=== PATIENT | male | born 1970 | race Caucasian/White ===

== ENCOUNTER 2019-08-25 08:49 | Emergency (ER) | payer OTHER ==
[2019-08-25 09:14] VITALS: O2SAT 98
--- NOTE | 2019-08-25 09:25 | ERPHSYRPT ---
- History of Present Illness Time Seen by Provider: 08/25/19 08:55 Source: patient Exam Limitations: no limitations Physician History: fell and twisted his right knee at work. Patient says that his knee buckled up. Moderate pain in the right knee. The knee was immobilized prior to arrival at his work. No other injury or symptoms. Method of Injury: fell Occurred: just prior to arrival Quality: aching Severity of Pain-Max: moderate Severity of Pain-Current: moderate Lower Extremities Pain: knee: right Modifying Factors: Improves With: immobilization, movement Associated Symptoms: none Allergies/Adverse Reactions: No Known Drug Allergies Allergy (Verified 08/25/19 08:51) Home Medications: Losartan Potassium 1 tab PO DAILY 08/25/19 [History] Losartan Potassium 1 tab PO DAILY 08/25/19 [History] Hx Tetanus, Diphtheria Vaccination/Date Given: Yes (Current) Hx Influenza Vaccination/Date Given: Yes (06/06) Hx Pneumococcal Vaccination/Date Given: No - Review of Systems Constitutional: No Fever, No Chills Eyes: No Symptoms Ears, Nose, & Throat: No Symptoms Respiratory: No Cough, No Dyspnea Cardiac: No Chest Pain, No Edema, No Syncope Abdominal/Gastrointestinal: No Abdominal Pain, No Nausea, No Vomiting, No Diarrhea Genitourinary Symptoms: No Dysuria Musculoskeletal: Other (right knee: Painful, no tenderness, painful range of motion. No deformity.), No Back Pain, No Neck Pain Skin: No Rash Neurological: No Dizziness, No Focal Weakness, No Sensory Changes Psychological: No Symptoms Endocrine: No Symptoms All Other Systems: Reviewed and Negative - Past Medical History Pertinent Past Medical History: Yes Neurological History: No Pertinent History ENT History: No Pertinent History Cardiac History: High Cholesterol Respiratory History: Bronchitis, Other Endocrine Medical History: No Pertinent History Musculoskeletal History: Fractures GI Medical History: No Pertinent History History: No Pertinent History Psycho-Social History: No Pertinent History Male Reproductive Disorders: No Pertinent History Other Medical History: Narcolepsy. l1/l2 back fx 2011- no surgery needed - Past Surgical History Past Surgical History: Yes Neuro Surgical History: No Pertinent History Cardiac: No Pertinent History Respiratory: No Pertinent History Gastrointestinal: No Pertinent History Genitourinary: No Pertinent History Musculoskeletal: No Pertinent History Male Surgical History: Vasectomy Other Surgical History: cyst removed from scalp - Social History Smoking Status: Former smoker How long have you smoked: 11yrs Exposure to second hand smoke: No Drug Use: none Patient Lives Alone: No Significant Family History: no pertinent family hx - Nursing Vital Signs Nursing Vital Signs: Initial Vital Signs Temperature 98.0 F 08/25/19 09:02 Pulse Rate 87 08/25/19 09:02 Respiratory Rate 18 08/25/19 09:02 Blood Pressure 152/101 08/25/19 09:02 O2 Sat by Pulse Oximetry 98 08/25/19 09:02 Pain Scale Pain Intensity 3 - Physical Exam General Appearance: alert Eyes, Ears, Nose, Throat Exam: moist mucous membranes Neck Exam: non-tender, supple Cardiovascular/Respiratory Exam: chest non-tender, normal breath sounds, regular rate/rhythm, no respiratory distress Gastrointestinal/Abdominal Exam: non-tender, guarding Back Exam: normal inspection, No vertebral tenderness Hips Exam: right: non-tender, normal inspection, normal range of motion, bone tenderness Legs Exam: bilateral leg: non-tender, normal inspection, normal range of motion , no evidence of injury Knees Exam: right knee: pain, soft tissue tenderness (right knee: Painful, no tenderness, painful range of motion. No deformity.) Ankle Exam: bilateral ankle: non-tender, normal inspection, normal range of motion Foot Exam: bilateral foot: non-tender, normal inspection, normal range of motion , no evidence of injury Neuro/Tendon Exam: normal sensation, normal motor functions, normal tendon functions, responds to pain, no evidence tendon injury, No motor deficit, No sensory deficit Mental Status Exam: alert, oriented x 3, cooperative Skin Exam: normal color, warm, dry SpO2 Interpretation: normal O2 Delivery: Room Air - Course Nursing assessment & vital signs reviewed: Yes - Radiology Exams Right Knee X-ray Interpretation: Discussed w/ radiologist, Negative Ordered Tests: Active Orders 24 hr Category Date Time Status KNEE (MIN 4 VIEW) Stat Exams 08/25/19 09:09 Completed - Progress Progress: improved Progress Note: 08/25/19 09:46 normal and the x-ray. No acute life or limb threatening condition. Advised patient to get outpatient MRI by Work Man's comp Counseled pt/family regarding: diagnosis, need for follow-up, rad results - Departure Departure Disposition: Home Clinical Impression: Internal derangement of knee Qualifiers: Laterality: right Qualified Code(s): M23.91 - Unspecified internal derangement of right knee Condition: Good Critical Care Time: No Instructions: Knee Sprain (DC), Knee Pain (DC), Internal Derangement of the Knee Additional Instructions: outpatient MRI of the knees by Workmen's Comp. Sal No use of her right lower extremity until cleared by ortho Forms: Work/School Release Form
--- NOTE | 2019-08-25 09:28 | XRAY ---
Indication: Pain following fall. Comparison: None 3 views of the right knee demonstrates small medial condyle bone island. No other bony, articular, or soft tissue abnormalities.
[2019-08-25] MEDS ORDERED: Catapres 0.1 MG ONE (10:07)
[2019-08-25] MEDS: Catapres 0.1 MG PO ONE (10:09)
[2019-08-25 11:01] VITALS: BP 155/91; PULSE 83
== END 2019-08-25 11:01 | disposition home or self-care (01) ==
LOC: ED 08:49
DX: M23.91 Unspecified internal derangement of right knee (principal)
CPT/HCPCS: 73564; 99284; A9270-GY

== ENCOUNTER 2021-07-17 10:44 | Day surgery (SDC) | payer OTHER ==
--- NOTE | 2021-07-17 08:59 | HP ---
DATE OF SURGERY: 07/17/2021 HISTORY OF PRESENT ILLNESS: The patient is a 50-year-old with prior history of ventral hernia repair now has a ruptured cyst site on his right thigh. He is in need of excision. He is recovering well from his hernia repair. He is in need of excision of his ruptured cyst site on his right thigh at this time. PAST MEDICAL HISTORY: Hypertension. Hyperlipidemia. PAST SURGICAL HISTORY: Right knee surgery. Laparoscopic repair of incarcerated ventral hernia. MEDICATIONS: Atorvastatin, losartan, modafinil, aspirin. ALLERGIES: OXYCODONE. FAMILY HISTORY: Hypertension. CVA. SOCIAL HISTORY: Denies smoking. Does drink some alcohol on the weekend denies abuse. REVIEW OF SYSTEMS: Fourteen systems reviewed. No chest pain or palpitations. Other systems negative or noncontributory as above and per preadmission questionnaire. PHYSICAL EXAMINATION: GENERAL: No acute distress. HEENT: Sclerae nonicteric. NECK: No JVD. CHEST: Equal excursion, nonlabored breathing. CVS: Regular rate and rhythm. ABDOMEN: Soft. Incision healing well from his recent hernia repair. EXTREMITIES: He has right thigh ruptured cyst site in need of excision. NEURO: Alert, oriented, moving extremities symmetrically. PSYCH: Appropriate mood and affect. IMPRESSION: Ruptured cyst site right thigh in need of excision. Risks and benefits explained in detail including but not limited to bleeding or infection, risk of wound dehiscence possibly requiring packing, general risk of aches and pains, risk of wound infection possibly requiring packing, general risk of aches, pains, burning or numbness. The possibility of what we excise likely will not recur but he could develop similar cyst adjacent to or elsewhere on his body. He understands and agrees with the planned procedure, will proceed with excisional biopsy of ruptured cyst site right thigh as an outpatient.
[~2021-07-17 10:44] MED LIST: Lactated Ringers 1,000 ML IV ONE; XYLOCAINE 1% HCL 20 ML MDV ONE
[2021-07-17] MEDS ORDERED: Lactated Ringers 1,000 ML IV ONE (11:01)
[2021-07-17] MEDS ORDERED: CEFAZOLIN 2 GM-D5W BAG** 2 GM/50 ML ML IV ONE (11:04)
[2021-07-17] MEDS: Lactated Ringers 1,000 ML IV SCH (11:06)
[2021-07-17] MEDS: CEFAZOLIN 2 GM-D5W BAG** 2 GM/50 ML ML IV SCH (11:06)
[2021-07-17] MEDS ORDERED: Versed 2 MG/2 ML Injection ONE (12:35)
[2021-07-17] MEDS ORDERED: DIPRIVAN 200 MG/20 ML IV ONE ×2 (12:35→12:55)
[2021-07-17] MEDS ORDERED: SUBLIMAZE 100 MCG/2 ML ONE (12:35)
[2021-07-17 17:11] VITALS: BP 122/91; PULSE 61; O2SAT 98
--- NOTE | 2021-07-18 08:59 | OP ---
SURGERY DATE/TIME: 07/17/2021 1234 PREOPERATIVE DIAGNOSIS: Ruptured cyst site right thigh. POSTOPERATIVE DIAGNOSIS: Ruptured cyst site right thigh. PROCEDURE: Excision and biopsy ruptured cyst site right thigh with intermediate closure. SURGEON: Dr. Scout Daigle. ANESTHESIA: MAC. 1% lidocaine local. ESTIMATED BLOOD LOSS: Minimal. INDICATIONS: As noted above. Risks and benefits explained in detail and not limited to and consent obtained. DESCRIPTION OF PROCEDURE AND FINDINGS: The patient is taken to the operating room. MAC anesthesia induced. The thigh is prepped and draped in the usual sterile fashion. After official time out and no disagreement with planned procedure, 1% lidocaine local infiltrated in field pattern around the area. Excising in spindle-shaped fashion around this area dissection carried down to normal appearing subcutaneous tissue beneath. There is a little bit of purulence that leaked out the top but stayed out to normal appearing tissue outside the cyst area past this to clean tissue plane. Specimen passed off. Irrigated out with copious amount of sterile saline. It appeared to have good hemostasis. No evidence of any residual cyst material. Irrigated well. It was felt worthwhile to close it. The flaps were locally advanced back to the midline undermining on either side with interrupted 3-0 Vicryl deep and superficial subcu. Skin closed with 4-0 Vicryl running interrupted fashion, 3-0 Prolene used to reinforce the area as it was snug on this side. Steri-Strips and sterile dressing applied. The patient tolerated the procedure well. There were no immediate complications. Findings discussed with the family out in the waiting area.
== END 2021-07-17 14:25 | disposition home or self-care (01) ==
LOC: SDC 10:44
PROVIDERS: ATTEND Surgery
DX: L72.11 Pilar cyst (principal); I10 Essential (primary) hypertension; E78.5 Hyperlipidemia, unspecified
CPT/HCPCS: J0690; J2250; J2704; J3010

== ENCOUNTER 2023-03-04 07:11 | Emergency (ER) | payer OTHER ==
[2023-03-04 07:35] VITALS: O2SAT 97
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
--- NOTE | 2023-03-04 08:46 | XRAY ---
CLINICAL HISTORY:Trauma. Left femur pain. COMPARISON:None; TECHNIQUES:X-ray left femur AP, oblique and lateral views. FINDINGS: No acute fracture identified. Normal bone mineralization. Cortical margins of the osseous structures are within normal limits. No lytic or sclerotic bone lesion. Soft tissues appear unremarkable. IMPRESSION: No acute fracture identified. No gross abnormality. DISCLAIMER: A subtle bone abnormality or fracture may not be readily apparent on x-rays, thus clinical correlation and further imaging including follow-up CT, MRI, or follow-up x-rays are advised as needed. Electronically Signed by: Rubia Mohan MD. ( 03/04/2023 07:39:38 POLISHER SAND)
--- NOTE | 2023-03-04 09:04 | XRAY ---
CLINICAL HISTORY:Left lateral thoracic pain/trauma. COMPARISON:None; TECHNIQUES:Contiguous 3.[address] images of the chest were acquired without administration of intravenous contrast. Coronal and sagittal reconstructions were obtained. FINDINGS: Mild bilateral fat deposition is noted along the outside of posterior-lateral parietal pleura, likely representing extrapleural lumbar lordosis (benign finding). A calcific density is seen in right hilar region, likely lymph node. It measures 19 x 15 mm. Small calcified granuloma is seen in right lower lobe. Heart size is normal, and there is no pericardial effusion. No pathologically enlarged axillary lymph node identified. There is no definite mass lesion in the chest wall. Degenerative changes seen in the visualized spine no other bony abnormality is detected. No obvious fracture is seen in the visualized bones. The rest of scanned upper abdomen shows Fatty liver, multiple calcified granuloma in spleen and liver and mild pancreatic atrophy with fatty infiltration. IMPRESSION: Both lungs are clear - No evidence of lung contusion/injury. No obvious fracture is seen in the visualized bones. Electronically Signed by: Rubia Mohan MD. ( 03/04/2023 08:01:12 SENIOR RESEARCH CONSULTANT)
--- NOTE | 2023-03-04 09:08 | XRAY ---
CLINICAL HISTORY:Left lateral thoracic pain/trauma. COMPARISON:None; TECHNIQUES:CT scan of the abdomen was performed without IV contrast. Bowel loops are not opacified by prior administration of oral contrast. FINDINGS: The liver is mildly enlarged in size and measures 17 cm and shows diffuse fatty infiltration. Multiple calcified granulomas are seen scattered in both lobe of liver. The portal vein, intrahepatic biliary radicals and the bile ducts are normal. The spleen is also mildly enlarged in size, measuring 13.5 cm. Multiple calcified granulomas are seen within it. No mass is seen. Pancreas is normal in size and shows fatty infiltration. Adrenal glands are unremarkable. The kidneys are normal in size and shape. No calculi or hydronephrosis seen on either side. GB is unremarkable. The visualized small and large bowel loops are unremarkable. There is no evidence of significant enlargement of the mesenteric or retroperitoneal lymph nodes. Urinary bladder is unremarkable, no hyperdense calculus / wall thickening noted. Prostate is normal in size. Surgical ashwin are seen along the anterior abdominal wall, in the region of umbilicus, likely due to hernia repair. Degenerative changes seen in the visualized spine with prominent anterior osteophytes. No lytic or sclerotic bone lesions. No obvoius fractures are seen in the visualized bones. IMPRESSION: Mild hepatomegaly with fatty infiltration and calcified granulomas. Mild splenomegaly with calcified granulomas. Pancreatic fatty infiltration. Electronically Signed by: Rubia Mohan MD. ( 03/04/2023 08:03:50 TRANSMISSION SYSTEM OPERATOR)
[2023-03-04 09:30] VITALS: BP 148/98; PULSE 91
== END 2023-03-04 09:36 | disposition home or self-care (01) ==
LOC: ED 07:11
DX: S20.212A Contusion of left front wall of thorax, initial encounter (principal); S70.02XA Contusion of left hip, initial encounter; S70.12XA Contusion of left thigh, initial encounter; V86.55XA Driver of 3- or 4- wheeled all-terrain vehicle (ATV) injured in nontraffic accident, initial encounter; E78.5 Hyperlipidemia, unspecified; I10 Essential (primary) hypertension; Z79.899 Other long term (current) drug therapy
CPT/HCPCS: 71250; 73552; 74176; 99285

== ENCOUNTER 2024-08-17 07:40 | Emergency (ER) | payer OTHER ==
[2024-08-17 08:03] VITALS: TEMP 98
--- NOTE | 2024-08-17 08:04 | ERPHSYRPT ---
- History of Present Illness Source: patient Exam Limitations: no limitations Physician History: Patient was about 8 feet in the air and forced to jump because of an impending trauma. He landed on his feet. He landed on concrete. He has pain in his knee. It is in the right knee more anterior and lateral. He is had surgery on that knee before with a ACL replacement. He is able to ambulate but it is painful and affected by pain.He has no other trauma. He has some edema in that right leg currently.Walking makes it worse rest ice and elevate makes it better. Pain is described as an ache Allergies/Adverse Reactions: oxycodone Adverse Reaction (Intermediate, Verified 08/17/24 07:50) Shortness of Breath Home Medications: Losartan Potassium 25 mg PO DAILY 08/25/19 [History] Atorvastatin Calcium [Lipitor] 10 mg PO DAILY 07/12/21 [History] Amlodipine Besylate [Norvasc] 2.5 mg PO UD 07/28/24 [History] Tamsulosin HCl 0.4 mg [Flomax 0.4 MG] 0.4 mg PO UD 07/28/24 [History] Metformin HCl 500 mg [Glucophage 500 MG] 500 mg PO DAILY 08/17/24 [History] Hx Tetanus, Diphtheria Vaccination/Date Given: Yes (Current) Hx Influenza Vaccination/Date Given: Yes (06/06) Hx Pneumococcal Vaccination/Date Given: No - Review of Systems Constitutional: No Symptoms Eyes: No Symptoms Respiratory: No Symptoms Neurological: No Symptoms All Other Systems: Reviewed and Negative - Past Medical History Pertinent Past Medical History: Yes Neurological History: No Pertinent History ENT History: No Pertinent History Cardiac History: High Cholesterol, Hypertension Respiratory History: Bronchitis, Other Endocrine Medical History: No Pertinent History Musculoskeletal History: Fractures GI Medical History: No Pertinent History History: No Pertinent History Psycho-Social History: No Pertinent History Male Reproductive Disorders: No Pertinent History Other Medical History: Narcolepsy. l1/l2 back fx 2011- no surgery needed - Past Surgical History Past Surgical History: Yes Neuro Surgical History: No Pertinent History Cardiac: No Pertinent History Respiratory: No Pertinent History Gastrointestinal: No Pertinent History Genitourinary: No Pertinent History Musculoskeletal: No Pertinent History Male Surgical History: Vasectomy Other Surgical History: cyst removed from scalp Significant Family History: no pertinent family hx - Social History Smoking Status: Former smoker How long have you smoked: 11yrs Exposure to second hand smoke: No Drug Use: none Patient Lives Alone: No - Nursing Vital Signs Nursing Vital Signs: Initial Vital Signs Temperature 98 F 08/17/24 07:52 Pulse Rate 84 08/17/24 07:52 Respiratory Rate 18 08/17/24 07:52 Blood Pressure 153/87 08/17/24 07:52 O2 Sat by Pulse Oximetry 99 08/17/24 07:52 Pain Scale Pain Intensity 8 - Physical Exam General Appearance: no apparent distress Eyes, Ears, Nose, Throat Exam: normal ENT inspection Hips Exam: bilateral: non-tender, normal inspection, normal range of motion, no evidence of injury Legs Exam: bilateral leg: non-tender, normal inspection, normal range of motion, no evidence of injury Knees Exam: right knee: bone tenderness, joint effusion, pain, soft tissue tenderness, swelling Ankle Exam: bilateral ankle: non-tender, normal inspection, normal range of motion, no evidence of injury Foot Exam: bilateral foot: non-tender, normal inspection, normal range of motion, no evidence of injury Neuro/Tendon Exam: normal sensation, normal motor functions, normal tendon functions Mental Status Exam: alert, oriented x 3 Skin Exam: normal color, warm - Course Nursing assessment & vital signs reviewed: Yes Ordered Tests: Active Orders 24 hr Category Date Time Status KNEE (3 VIEWS) Stat Exams 08/17/24 08:01 Taken - Progress Progress Note: Patient was stable throughout stay. On the differential was tibial plateau fracture, internal derangement of the knee. An x-ray was done as interpreted by me. There is no acute fracture seen. At this time I think there is probably an internal derangement. He has there is a orthopedic doctor established already. I am basing this on to put a David wrap on him. He has crutches at home. He does not want anything for pain. He is not a follow-up with his orthopedist. 08/17/24 08:30 Medical Desision Making - Independent Historian Additional History obtained from: Spouse - Diagnostic Testing Radiological Interpretation: Interpreted by me - Risk of complications Minimal Risk: Minimal risk of morbidity - Departure Departure Disposition: Home Clinical Impression: Internal derangement of knee Qualifiers: Laterality: right Qualified Code(s): M23.91 - Unspecified internal derangement of right knee Condition: Stable Critical Care Time: No Referrals: MAT NOWAK MD [Primary Care Provider] - Follow up/PCP as directed Instructions: Internal Derangement of the Knee (DC)
[2024-08-17 08:27] VITALS: PULSE 80; O2SAT 98
--- NOTE | 2024-08-17 08:47 | XRAY ---
Indication: Pain following fall. Comparison: None 3 view right knee demonstrates prior ACL reconstructive surgery with tiny heterotopic ossification adjacent to medial femoral condyle. Incidental tiny medial condyle bone island and tiny posterior fabella. Small nonspecific effusion. No other bony, articular, or soft tissue abnormalities.
[2024-08-17 09:12] VITALS: BP 123/63; RESP 17
== END 2024-08-17 09:12 | disposition home or self-care (01) ==
LOC: ED 07:40
DX: M23.91 Unspecified internal derangement of right knee (principal); M25.561 Pain in right knee; W17.89XA Other fall from one level to another, initial encounter
CPT/HCPCS: 73562; 99282; 99283

== ENCOUNTER 2024-09-10 06:20 | Day surgery (SDC) | payer OTHER ==
[2024-09-10 06:46] VITALS: RESP 16
[2024-09-10] MEDS: Lactated Ringers 1,000 ML IV SCH (06:50)
[2024-09-10] MEDS ORDERED: propofoL IV ONE ×2 (07:27→08:12)
[2024-09-10 08:52] VITALS: O2SAT 99
[2024-09-10 09:07] VITALS: BP 124/84; PULSE 70; TEMP 97.9
--- NOTE | 2024-09-14 08:50 | OP ---
SURGERY DATE/TIME: 09/10/2024 [id number] PREOPERATIVE DIAGNOSIS: Screening colonoscopy. POSTOPERATIVE DIAGNOSIS: Colon polyps x2. PROCEDURE PERFORMED: Colonoscopy. SURGEON: Jere Archer MD. ANESTHESIA: MAC by Herbert Do CRNA. ESTIMATED BLOOD LOSS: Minimal. SPECIMENS: Hot snare polypectomy from the cecum and a hot forceps polypectomy from the descending colon. DESCRIPTION OF PROCEDURE AND FINDINGS: After informed written consent was obtained, the patient was taken to the endoscopy suite. He was placed in the left lateral decubitus position and anesthesia was titrated to the desired level of consciousness. Digital rectal exam showed normal sphincter tone and no internal lesions. The scope was inserted in the rectum, and sequentially the entire colonic mucosa was traversed. The level of the cecum was reached and verified with direct visualization of the ileocecal valve. There was a fairly large polypoid lesion just proximal to the ileocecal valve. It was encircled with a snare, cauterized at the base, and suctioned through the scope and retrieved in a trap, sent for pathology testing. Lesion appeared to be totally removed with good hemostasis from the cautery following removal. Upon further withdrawal, there were other mucosal lesions. Prep was noted to be good. Upon reaching the proximal descending colon, there was another small polypoid lesion. It was grasped with a forceps, cauterized and removed in its entirety, sent for pathology testing as well. The remainder of the exam was within normal limits. There were very scattered diverticula. Prior to withdrawal, retroflexion showed no internal lesions. Scope was removed and patient was transferred to the recovery room in good condition. He will follow up in a week for pathology results.
== END 2024-09-10 09:19 | disposition home or self-care (01) ==
LOC: SDC 06:20
PROVIDERS: ATTEND Family Medicine
DX: Z12.11 Encounter for screening for malignant neoplasm of colon (principal); R73.03 Prediabetes; D12.0 Benign neoplasm of cecum; D12.4 Benign neoplasm of descending colon
CPT/HCPCS: 82947; J2704